=== PATIENT | female | born 1995 | race African-American/Black ===

== ENCOUNTER 2018-05-30 21:38 | Emergency (ER) | payer MEDICAID, OTHER ==
[~2018-05-30] VITALS: Ht 170.2 cm; Wt 55.0 kg
[~2018-05-30 21:38] MED LIST: IBUP-516 PO; UNK MUSCLE RELAXER
[2018-05-31] MEDS ORDERED: HYDROCODONE/ACETAMINOPHEN 5/325MG TABLET PO ONE (01:15)
[2018-05-31] MEDS ORDERED: METHOCARBAMOL 500MG TABLET PO ONE (01:15)
[2018-05-31 03:30] VITALS: BP 112/75
== END 2018-05-31 03:30 | disposition home or self-care (01) ==
LOC: ER 21:38
DX: M43.6 Torticollis (principal); Z88.0 Allergy status to penicillin
CPT/HCPCS: 99283; Z7610